=== PATIENT | male | born 1995 | race American Indian/Alaskan Native ===

== ENCOUNTER 2023-09-18 13:50 | Emergency (ER) | payer MEDICAID ==
[~2023-09-18] VITALS: Ht 180.3 cm; Wt 54.4 kg
[2023-09-18 13:50] VITALS: BP_SYST 126; PULSE 63; RESP 18; TEMP 97.9; O2SAT 99
== END 2023-09-18 15:28 | disposition home or self-care (01) ==
LOC: SED 13:50
DX: S09.90XA Unspecified injury of head, initial encounter (principal); Z88.6 Allergy status to analgesic agent; Y04.0XXA Assault by unarmed brawl or fight, initial encounter; Y93.89 Activity, other specified; Y92.89 Other specified places as the place of occurrence of the external cause; Y99.8 Other external cause status
CPT/HCPCS: 70450-TC; 76376; 99284